=== PATIENT | male | born 1970 | race Caucasian/White ===

== ENCOUNTER → 2019-12-23 11:10 | Outpatient (CLI) | payer OTHER, SELFPAY ==
--- NOTE | ~2019-12-23 | XR_ITS ---
EXAMINATION: XR knee RT min 4V EXAM DATE: 12/23/2019 11:59 INDICATION: Bilateral knee pain. TECHNIQUE: Right knee lateral, frontal AP, frontal PA tunnel, sunrise projections. There is no prior study for comparison. FINDINGS: No right knee joint effusion. Evidence of minimal primary osteoarthritis. There are no acu te fractures or dislocations identified. There is no subcutaneous gas. The soft tissue is unremarka ble. There are no radiopaque foreign bodies. IMPRESSION: Minimal right knee osteoarthritis. Reviewed, dictated and finalized at location A.
--- NOTE | ~2019-12-23 | XR_ITS ---
EXAMINATION: XR knee LT min 4V EXAM DATE: 12/23/2019 11:59 INDICATION: No known recent injury provided at this time. Pain of the bilateral anterior knee pain. TECHNIQUE: Left knee lateral, frontal AP, frontal PA tunnel, sunrise projections. There is no prior study for comparison. FINDINGS: No left knee joint effusion. There is minimal left knee primary osteoarthritis. There are no acute fractures or dislocations identified. There is no subcutaneous gas. The soft tissue is unr emarkable. There are no radiopaque foreign bodies. The joint spaces are uniform. IMPRESSION: Minimal left knee osteoarthritis. Reviewed, dictated and finalized at location A.
== END ==
PROVIDERS: PCP Family Medicine; Visit Provider Family Medicine
DX: M17.0 Bilateral primary osteoarthritis of knee (principal)
CPT/HCPCS: 73564